=== PATIENT | male | born 1980 | race Hispanic/Latino ===

== ENCOUNTER 2024-12-03 23:47 | Emergency (ER) | payer SELFPAY ==
[~2024-12-03] VITALS: Ht 180.3 cm; Wt 113.4 kg
--- NOTE | 2024-12-04 00:34 | ERN ---
General Chief Complaint: Ankle Problem Stated Complaint: RT ANKLE PAIN Time Seen by MD: 23:52 Source: patient History of Present Illness Initial Comments Patient is a 44-year-old male obese who comes in with pain and swelling in his right ankle. He has had bilateral swollen feet for months possibly years. Does not know the cause as he has not seen a doctor for years. He states no fever but positive chills. No chest pain no shortness of breath. When I asked him about his past medical history he said he is unaware of any systemic diseases such as diabetes hypertension heart disease vascular disease venous stasis disease lymphatic disease. He says he has not gone to a doctor in years and that he may have diabetes and hypertension but he just does not know. Timing/Duration: 1 week, getting worse Allergies: Coded Allergies: No Known Allergies (Unverified Allergy, Unknown, 12/03/24) Past Medical History Past Medical History: Other Medical History Other: SLEEP APNEA. USES C PAP Past Surgical History: Other Surgical History Other: RT LEG Constitutional: (+) chills Respiratory: (-) cough, (-) orthopnea, (-) short of breath, (-) stridor, (-) wheezing, (-) other documentation Cardiovascular: (-) chest pain, (-) edema, (-) palpitations, (-) syncope, (-) dyspnea on exertion, (-) other documentation Gastrointestinal/Abdominal: (-) nausea, (-) vomiting, (-) diarrhea, (-) abdominal pain, (-) abdominal distention, (-) constipation, (-) rectal bleeding, (-) dark stool/melena, (-) other documentation Musculoskeletal: (-) Neck pain, (-) back pain, (-) Flank Pain, (-) joint pain, (-) joint swelling, (-) muscle pain, (-) muscle stiffness, (-) gout, (-) other documentation Neuro: (-) altered mental status, (-) headache, (-) syncope, (-) paralysis, (-) numbness, (-) seizure, (-) pre-existing deficit, (-) tremors, (-) weakness, (-) dizziness, (-) slurred speech, (-) vertigo, (-) other documentation Physical Exam General Appearance: (+) mild distress General Appearance comment Patient comes in with a compression stocking over his right ankle to decrease the swelling. Orientation: (+) alert, (+) oriented x 3 Head/Face Trauma: No Eye: bilateral eye normal inspection, bilateral eye PERRL, bilateral eye EOMI Ear, Nose, Throat: (+) hearing grossly normal, (+) normal ENT inspection, (+) moist mucous membraine Neck: (+) normal inspection, (+) supple, (+) full range of motion, (+) no JVD Respiratory: (+) chest non-tender, (+) lungs clear, (+) well ventilated Heart: (+) regular, (+) no gallop Vascular: (+) edema Vascular Comment Difficult to palpate peripheral pulses in the patient's feet. Gastrointestinal: (+) soft, (+) non-tender, (+) bowel sound present Results Laboratory and Microbiology Lab and Micro Result Laboratory Tests Test 12/04/24 00:57 White Blood Count 13.0 K/uL (4.8-10.8) H Red Blood Count 4.98 MIL/uL (4.50-6.20) Hemoglobin 15.1 g/dL (14.0-18.0) Hematocrit 44.0 % (42-54) Mean Corpuscular Volume 88.4 fL (79-99) Mean Corpuscular Hemoglobin 30.3 pg (27.0-33.0) Mean Corpuscular Hemoglobin Concent 34.3 g/dL (32.0-36.0) Red Cell Distribution Width 14.1 % (11.0-15.5) Platelet Count 217 K/uL (130-400) Mean Platelet Volume 9.0 fL (7.5-10.5) Immature Granulocyte % (Auto) 0.7 % (0-1) Neutrophils (%) (Auto) 85.6 % (40.0-77.0) H Lymphocytes (%) (Auto) 6.3 % (21.0-51.0) L Monocytes (%) (Auto) 6.7 % (3.0-13.0) Eosinophils (%) (Auto) 0.4 % (0.0-8.0) Basophils (%) (Auto) 0.3 % (0.0-5.0) Neutrophils # (Auto) 11.2 K/uL (1.8-7.7) H Lymphocytes # (Auto) 0.8 K/uL (1.0-4.8) L Monocytes # (Auto) 0.9 K/uL (0.1-1.0) Eosinophils # (Auto) 0.05 K/uL (0.00-0.70) Basophils # (Auto) 0.04 K/uL (0.00-0.20) Absolute Immature Granulocyte (auto 0.09 K/uL (0-1) Nucleated Red Blood Cells 0.0 % (0.0-0.19) White Cell Morphology Comment See comments Sodium Level 138 mmol/L (136-145) Potassium Level 3.5 mmol/L (3.5-5.1) Chloride Level 101 mmol/L (101-111) Carbon Dioxide Level 32 mmol/L (21-32) Blood Urea Nitrogen 13 mg/dL (7-18) Creatinine 0.6 mg/dL (0.5-1.3) Glomerular Filtration Rate Calc 122 mL/min (>90) Random Glucose 103 mg/dL (70-105) Lactic Acid Level 1.7 mmol/L (0.8-2.5) Total Calcium 8.8 mg/dL (8.5-10.1) Total Bilirubin 0.5 mg/dL (0.2-1.0) Aspartate Amino Transf (AST/SGOT) 16 U/L (10-37) Alanine Aminotransferase (ALT/SGPT) 20 U/L (12-78) Alkaline Phosphatase 78 U/L (50-136) Troponin I High Sensitivity 6 ng/L (4-75) CR-Cxi-N-Type Natriuretic Peptide 35 pg/mL (0-125) Total Protein 8.3 g/dL (6.0-8.3) Albumin 3.9 g/dL (3.5-5.0) Procalcitonin 0.13 ng/mL (0.05-0.5) MDM MDM: Differential diagnosis: Differential for a obese unhealthy appearing 44-year-old male with bilateral ankle pain swelling and erythema who has never been to a doctor is quite broad. He could be in: CHF, renal failure, liver failure, DVTs, vascular insufficiency, edema, hypoalbuminemia, Rationale: Tests considered and ordered secondary to shared decision making include: CBC EKG UA complete metabolic panel vascular studies of his legs for DVTs or arterial insufficiency. Previous outside records reviewed: Old ER visits. Risk of complication and/or morbidity or mortality of patient management: None Medications-Per medication reconciliation Need for hospitalization: Patient does meet criteria for hospitalization. Need for emergency major/minor surgery: No There are no social concerns with this patient. Prescription drug management Prescriptions will include symptomatic care Patient's prior external medical records from other ER visits were reviewed by me as indicated. Prior testing and results from previous visits were reviewed. Prior tests were taken into account with medical decision making and resource ut ilization, independent historian/historians were used to obtain complete medical history. I independently interpreted the test that were performed, results were reviewed by me and considered findings on radiology if ordered. Seemingly the patient's laboratory analysis showed very few problems. The patient is not in CHF. His chemistry panel shows adequate kidney function in the normal glucose normal sodium. Chest x-ray maybe shows fibrosis, but no infiltrates, possible hypervascularity. Patient does have an elevated white blood cell count I gave him a dose of Keflex for the erythema and swelling in his legs. I will send him home. ED Course Orders Procedure Category Date Status Time Cefazolin Sodium 1 Gm PHA 12/04/24 Complete Vial (Ancef 1 Gm V 00:32 12 Lead Ekg Tracing- EKG 12/04/24 Complete Technical 00:32 Comprehensive LAB 12/04/24 Complete Metabolic Panel 00:32 Cbc With Differential LAB 12/04/24 Complete 00:32 Lactic Acid LAB 12/04/24 Complete 00:32 Procalcitonin LAB 12/04/24 Complete 00:32 Troponin I High LAB 12/04/24 Complete Sensitivity 00:32 Urinalysis Profile LAB 12/04/24 Logged 00:32 12 Lead Ekg Tracing- EKG 12/04/24 Logged Technical 00:32 Chest 1vw RAD 12/04/24 Taken 00:37 Blood Cult RISHI 12/04/24 In Process 01:04 Probnp LAB 12/04/24 Complete 00:57 Current Medications Medications (Trade) Dose Ordered Sig/Stephanie Route PRN Reason Start Time Stop Time Status Last Admin Dose Admin Cefazolin Sodium (ANCEF 1 gm vial) 1 gm ONCE STAT IVP 12/04/24 00:32 12/04/24 00:35 DC 12/04/24 01:31 Vital Signs Date Time Temp Pulse Resp B/P (MAP) Pulse Ox O2 Delivery O2 Flow Rate FiO2 12/04/24 01:46 98 18 170/92 98 Room Air* 0 21 12/04/24 00:12 99.7 101 18 176/82 100 Room Air* 0 21 12/03/24 23:48 99.9 100 20 183/94 99 Room Air DX & DISP Disposition: Discharge Departure Impression: Primary Impression: Cellulitis of right leg without foot Condition: Stable Scripts Clindamycin HCl (Clindamycin HCl) 300 Mg Capsule 1 CAP PO QID for 10 Days, #40 CAP 0 Refills Prov: KARIME LYNN MD 12/04/24 Hydrochlorothiazide (Hydrochlorothiazide) 25 Mg Tablet 1 TAB PO DAILY for 30 Days, #30 TAB 0 Refills Prov: KARIME LYNN MD 12/04/24 Additional Instructions: Please find a primary care physician who can help you workup the cause of your bilateral leg swelling. It could be due to deep venous thrombosis. It could be due to venous stasis. It could be due to edema. Your blood pressure is a little high and you need to get that under better control. I am discharging you with a prescription for blood pressure medication and also a prescription for the cellulitis. Referrals: SELF,REFERRAL (PCP) KARIME LYNN MD Dec 04, 2024 00:34
--- NOTE | 2024-12-04 01:09 | EKG ---
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
[2024-12-04 01:10] LABS: BASOPHILS # (AUTO) 0.04 K/uL (0.00-0.20); BASOPHILS % (AUTO) 0.3 % (0.0-5.0); EOSINOPHILS # (AUTO) 0.05 K/uL (0.00-0.70); EOSINOPHILS % (AUTO) 0.4 % (0.0-8.0); IMMATURE GRANULOCYTE ABSOLUTE 0.09 K/uL (0-1); LYMPHOCYTES # (AUTO) 0.8 K/uL (1.0-4.8); LYMPHOCYTES % (AUTO) 6.3 % (21.0-51.0); MEAN CORPUSCULAR HEMOGLOBIN 30.3 pg (27.0-33.0); MEAN CORPUSCULAR HGB CONC 34.3 g/dL (32.0-36.0); MEAN CORPUSCULAR VOLUME 88.4 fL (79-99); MONOCYTES # (AUTO) 0.9 K/uL (0.1-1.0); MONOCYTES % (AUTO) 6.7 % (3.0-13.0); NEUTROPHILS # (AUTO) 11.2 K/uL (1.8-7.7); NEUTROPHILS % (AUTO) 85.6 % (40.0-77.0); PLATELET COUNT (AUTO) 217 K/uL (130-400); RED BLOOD CELL COUNT(AUTO) 4.98 MIL/uL (4.50-6.20); RED CELL DISTRIBUTION WIDTH 14.1 % (11.0-15.5)
[2024-12-04 01:30] LABS: CREATININE 0.6 mg/dL (0.5-1.3); POTASSIUM 3.5 mmol/L (3.5-5.1)
[2024-12-04] MEDS: ceFAZolin SODIUM 1 GM VIAL IVP STA (01:31)
[2024-12-04 01:35] LABS: ALBUMIN 3.9 g/dL (3.5-5.0); BILIRUBIN,TOTAL 0.5 mg/dL (0.2-1.0); TOTAL PROTEIN, SERUM 8.3 g/dL (6.0-8.3)
[2024-12-04] MEDS ORDERED: CLIN-141 PO (02:43)
[2024-12-04] MEDS ORDERED: HYDR25TA PO (02:43)
[2024-12-04 02:45] VITALS: BP 149/83; PULSE 105; RESP 20; TEMP 98.6; O2SAT 97
--- NOTE | 2024-12-04 08:43 | HMCIMG ---
Exam Type: CHEST 1VW Clinical Information: CHF Comparison: None Findings: The lungs are clear of infiltrates. The heart is normal in size. The bony and soft tissue structures of the chest are unremarkable. Impression: Clear lungs.
[2024-12-07] MEDS ORDERED: LEVO750T68 PO (15:04)
== END 2024-12-04 02:57 | disposition home or self-care (01) ==
LOC: EDH 23:47
DX: L03.115 Cellulitis of right lower limb (principal); E66.9 Obesity, unspecified; Z79.899 Other long term (current) drug therapy
CPT/HCPCS: 99285; 84484; 80053; 83880; 85025; 87040 ×2; 83605; 36415; 84145; 96374; 71045; 93005; J0690